=== PATIENT | female | born 1965 | race Caucasian/White ===

== ENCOUNTER 2020-04-25 18:27 | Emergency (ER) | payer OTHER, SELFPAY ==
[~2020-04-25] VITALS: Ht 157.5 cm; Wt 77.1 kg
[2020-04-25 19:16] VITALS: BP 136/57; Ht 157.5 cm; Wt 77.1 kg
== END 2020-04-25 20:16 | disposition home or self-care (01) ==
LOC: ED 18:27
DX: U07.1 COVID-19 (principal); M32.9 Systemic lupus erythematosus, unspecified; Z90.710 Acquired absence of both cervix and uterus; Z98.890 Other specified postprocedural states
CPT/HCPCS: U0003